=== PATIENT | male | born 1945 | race Caucasian/White ===

== ENCOUNTER 2024-04-13 19:55 | Inpatient (IN) | payer OTHER, MEDICARE ==
[~2024-04-13] VITALS: Ht 182.9 cm; Wt 81.8 kg
[2024-04-13] MEDS: HEPARIN DRIP INITAL BOLUS --- DO NOT GIVE/ORDER MC ONE (20:30)
[2024-04-13 20:52] LABS: ALANINE AMINOTRANSFERASE 28 U/L (12-78); ALBUMIN/GLOBULIN RATIO 1.1 (1.1-1.5); ALKALINE PHOSPHATASE 71 IU/L (46-116); ANION GAP 13 (8-16); ASPARTATE AMINO TRANSFERASE 67 U/L (10-37); BILIRUBIN,TOTAL 0.9 MG/DL (0.1-1.0); BLOOD UREA NITROGEN 51 MG/DL (7-18); BUN/CREATININE RATIO 20.6 (10.0-20.0); CALCIUM 8.7 MG/DL (8.5-10.1); CHLORIDE 102 MMOL/L (99-107); CREATININE 2.48 MG/DL (0.60-1.10); GLUCOSE 350 MG/DL (70-104); POTASSIUM 4.9 MMOL/L (3.5-5.1); SODIUM 137 MMOL/L (135-145); TOTAL CARBON DIOXIDE 21.8 MMOL/L (24-32); TOTAL PROTEIN 7.7 G/DL (6.4-8.2); eCRCL 28 ML/MIN; eGFR 25 ML/MIN
[2024-04-13 20:58] LABS: MAGNESIUM 2.7 MG/DL (1.5-2.4)
[2024-04-13 20:58] LABS: BASOPHILS % (AUTO) 0.1 % (0-1); EOSINOPHILS % (AUTO) 0 % (0-6); HEMATOCRIT 41.7 % (42.0-52.0); HEMOGLOBIN 13.8 g/dl (14.0-17.9); LYMPHOCYTES # (AUTO) 0.3 X10'3 (1.1-4.8); LYMPHOCYTES % (AUTO) 4.1 % (21-51); MEAN CORPUSCULAR HEMOGLOBIN 28.8 PG (27.0-31.0); MEAN CORPUSCULAR HGB CONC 33.2 g/dL (33.0-36.5); MEAN CORPUSCULAR VOLUME 86.8 FL (78-98); MEAN PLATELET VOLUME 7.7 FL (7.4-10.4); MONOCYTES # (AUTO) 0.4 X10'3 (0-0.9); MONOCYTES % (AUTO) 4.7 % (2-12); NEUTROPHILS # (AUTO) 7.4 X10'3 (1.8-7.7); NEUTROPHILS % (AUTO) 91.1 % (42-75); PLATELET COUNT 238 X10'3 (140-440); RED BLOOD COUNT 4.81 X10'6 (4.70-6.10); RED CELL DISTRIBUTION WIDTH 14.4 % (11.5-14.5); WHITE BLOOD COUNT 8.1 X10'3 (4.5-11.0)
[2024-04-13 21:00] LABS: PRO BRAIN NATRIURETIC PEPTIDE > 30000 PG/ML (0-450)
[2024-04-13 21:10] LABS: APTT 30 SECONDS (22-32); PROTHROMBIN TIME 10.7 SECONDS (9.0-12.0)
[2024-04-13] MEDS: heparin 10,000 units/1 ML INJ IV PRN (21:41)
[2024-04-13] MEDS: heparin 25,000 UNIT/250ml bag 250 ML IV PRN (21:44)
[2024-04-13] MEDS ORDERED: morphine 2 MG/ML inj. syringe IV PRN ×2 (21:50)
[2024-04-13] MEDS ORDERED: bisacodyl 10mg suppository rectal RC PRN (21:50)
[2024-04-13] MEDS ORDERED: dextrose 50%-water 50ml dispensing syringe IV PRN ×2 (21:50)
[2024-04-13] MEDS ORDERED: magnesium Cl slow-release 64mg tablet PO PRN (21:50)
[2024-04-13] MEDS ORDERED: acetaminophen 325mg tablet PO PRN (21:50)
[2024-04-13] MEDS ORDERED: mag hydrox/Alum hydrox/simeth 30ml oral suspension PO PRN (21:50)
[2024-04-13] MEDS ORDERED: DEXTROSE 15 GM of carb/4 tabs (each vial/BOTTLE has 4 tablets) PO PRN ×2 (21:50)
[2024-04-13] MEDS ORDERED: magnesium hydroxide 30ml (MOM) UD suspension PO PRN (21:50)
[2024-04-13] MEDS ORDERED: magnesium sulf-water 4G/100mL 100 ML IV PRN (21:50)
[2024-04-13] MEDS ORDERED: potassium Cl 20 mEq SR tablet PO PRN ×2 (21:50)
[2024-04-13] MEDS ORDERED: potassium Cl 40MEQ/1/2NS 520ml 520 ML IV PRN (21:50)
[2024-04-13] MEDS ORDERED: magnesium sulf-water 2g/50mL 50 ML IV PRN (21:50)
[2024-04-13] MEDS ORDERED: ondansetron/PF 4mg/2ml inj IV PRN (21:50)
[2024-04-13] MEDS ORDERED: HYDROmorphone inj. 0.5 MG/0.5 ML DISP.SYRIN IV PRN (21:50)
[2024-04-13] MEDS ORDERED: glucagon, human recombinant 1mg kit SUBCUT PRN (21:50)
[2024-04-13] MEDS: metoprolol tartrate 1mg/ml inj IV SCH (22:05)
[2024-04-13] MEDS: atorvastatin 20mg tablet PO SCH (22:40)
[2024-04-13 22:45] VITALS: PULSE 87; RESP 18; O2SAT 94
[2024-04-13] MEDS: ipratropium/albuterol 3ml nebule NEB SCH (22:45)
[2024-04-13 22:57] VITALS: PULSE 80; RESP 18
[2024-04-13 23:11] LABS: HEMOGLOBIN A1C 6.4 % (4.5-6.2)
[2024-04-13] MEDS: MESSAGE TO NURSING IV ONE (23:25)
[2024-04-13 23:47] LABS: BILIRUBIN,URINE NEGATIVE (Neg); CLARITY,URINE CLEAR (Clear); COLOR,URINE YELLOW (Yellow); GLUCOSE, URINE >=1000 mg/dl (Neg); KETONES,URINE TRACE mg/dl (Neg); LEUKOCYTE ESTERASE ,URINE NEGATIVE (Neg); NITRITES, URINE NEGATIVE (Neg); OCCULT BLOOD,URINE TRACE-INTACT (Neg); PH,URINE 5.5 (4.8-8.0); PROTEIN,URINE NEGATIVE (Neg); UROBILINOGEN,URINE 0.2 E.U/dL (0.2-1.0)
[2024-04-13 23:51] LABS: UA COLLECTION TYPE URINAL
[2024-04-13 23:54] LABS: BACTERIA,URINE 2+ /HPF (Neg); HYALINE CASTS 0-3 /LPF (NEGATIVE); MUCUS STRANDS FEW /LPF (Neg); RBC,URINE 0-2 /HPF (0-2); SQUAMOUS EPITHELIAL CELL,UR FEW /LPF (FEW); WBC,URINE 0-4 /HPF (0-4)
[2024-04-14] VITALS (8 sets, daily range): BP systolic 154; BP diastolic 71; PULSE 67–92; RESP 15–18; TEMP 97.2; O2SAT 95–100
[2024-04-14 04:18] LABS: BASOPHILS % (AUTO) 0.3 % (0-1); EOSINOPHILS % (AUTO) 0 % (0-6); HEMATOCRIT 40.6 % (42.0-52.0); HEMOGLOBIN 13.5 g/dl (14.0-17.9); LYMPHOCYTES # (AUTO) 0.6 X10'3 (1.1-4.8); LYMPHOCYTES % (AUTO) 4.4 % (21-51); MEAN CORPUSCULAR HEMOGLOBIN 28.6 PG (27.0-31.0); MEAN CORPUSCULAR HGB CONC 33.2 g/dL (33.0-36.5); MEAN PLATELET VOLUME 7.8 FL (7.4-10.4); MONOCYTES # (AUTO) 0.8 X10'3 (0-0.9); MONOCYTES % (AUTO) 5.6 % (2-12); NEUTROPHILS # (AUTO) 12.3 X10'3 (1.8-7.7); NEUTROPHILS % (AUTO) 89.7 % (42-75); PLATELET COUNT 235 X10'3 (140-440); RED BLOOD COUNT 4.72 X10'6 (4.70-6.10); RED CELL DISTRIBUTION WIDTH 14.7 % (11.5-14.5); WHITE BLOOD COUNT 13.7 X10'3 (4.5-11.0)
[2024-04-14 04:43] LABS: ALANINE AMINOTRANSFERASE 29 U/L (12-78); ALBUMIN 3.5 G/DL (3.4-5.0); ALBUMIN/GLOBULIN RATIO 1.1 (1.1-1.5); ALKALINE PHOSPHATASE 58 IU/L (46-116); ANION GAP 10 (8-16); ASPARTATE AMINO TRANSFERASE 90 U/L (10-37); BILIRUBIN,TOTAL 0.8 MG/DL (0.1-1.0); BLOOD UREA NITROGEN 53 MG/DL (7-18); BUN/CREATININE RATIO 22.5 (10.0-20.0); CALCIUM 8.5 MG/DL (8.5-10.1); CHLORIDE 104 MMOL/L (99-107); CHOL/HDL RATIO 4.3 (0.00-4.99); CHOLESTEROL 225 MG/DL (0-200); CREATININE 2.36 MG/DL (0.60-1.10); GLUCOSE 243 MG/DL (70-104); HDL CHOLESTEROL 52 MG/DL (35-60); LDL CHOLESTEROL 154 MG/DL (50-100); MAGNESIUM 2.7 MG/DL (1.5-2.4); SODIUM 138 MMOL/L (135-145); TOTAL CARBON DIOXIDE 24.5 MMOL/L (24-32); TOTAL PROTEIN 6.7 G/DL (6.4-8.2); TRIGLYCERIDES 70 MG/DL (20-135); eCRCL 30 ML/MIN; eGFR 27 ML/MIN
[2024-04-14] MEDS: MESSAGE TO NURSING IV ONE ×2 (04:45→23:55)
[2024-04-14 04:47] LABS: POTASSIUM 4.4 MMOL/L (3.5-5.1)
[2024-04-14] MEDS: docusate sod 100mg capsule PO SCH (07:07)
[2024-04-14] MEDS: K and/or MAG REPLACEMENT MC SCH (07:07)
[2024-04-14] MEDS: metoprolol succinate 25mg (24-HOUR) SR. Tablet PO SCH (08:44)
[2024-04-14] MEDS: INSULIN LISPRO 100 UNIT/ML INSULN.PEN MULTI-DOSE SQ SCH (08:47)
[2024-04-14] MEDS: furosemide 40mg/4ml inj IV ONE (12:35)
[2024-04-14] MEDS: insulin glargine (Lantus) pen - multi-dose SQ SCH (21:05)
[2024-04-15] VITALS (8 sets, daily range): BP systolic 143–154; BP diastolic 76–79; PULSE 60–84; RESP 16–20; TEMP 97.3–98.4; O2SAT 94–99
[2024-04-15 07:26] LABS: BASOPHILS # (AUTO) 0.1 X10'3 (0-0.2); BASOPHILS % (AUTO) 0.7 % (0-1); EOSINOPHILS # (AUTO) 0.1 X10'3 (0-0.9); EOSINOPHILS % (AUTO) 0.9 % (0-6); HEMATOCRIT 42.6 % (42.0-52.0); HEMOGLOBIN 14.1 g/dl (14.0-17.9); LYMPHOCYTES # (AUTO) 1.7 X10'3 (1.1-4.8); LYMPHOCYTES % (AUTO) 21.2 % (21-51); MEAN CORPUSCULAR HEMOGLOBIN 28.4 PG (27.0-31.0); MONOCYTES # (AUTO) 0.8 X10'3 (0-0.9); MONOCYTES % (AUTO) 9.7 % (2-12); NEUTROPHILS # (AUTO) 5.5 X10'3 (1.8-7.7); NEUTROPHILS % (AUTO) 67.5 % (42-75); PLATELET COUNT 210 X10'3 (140-440); RED BLOOD COUNT 4.95 X10'6 (4.70-6.10); RED CELL DISTRIBUTION WIDTH 14.7 % (11.5-14.5); WHITE BLOOD COUNT 8.1 X10'3 (4.5-11.0)
[2024-04-15 07:42] LABS: ALANINE AMINOTRANSFERASE 32 U/L (12-78); ALBUMIN 3.7 G/DL (3.4-5.0); ALKALINE PHOSPHATASE 60 IU/L (46-116); ANION GAP 13 (8-16); ASPARTATE AMINO TRANSFERASE 65 U/L (10-37); BILIRUBIN,TOTAL 0.9 MG/DL (0.1-1.0); BLOOD UREA NITROGEN 60 MG/DL (7-18); BUN/CREATININE RATIO 24.7 (10.0-20.0); CALCIUM 8.9 MG/DL (8.5-10.1); CHLORIDE 101 MMOL/L (99-107); CREATININE 2.43 MG/DL (0.60-1.10); GLUCOSE 143 MG/DL (70-104); MAGNESIUM 2.5 MG/DL (1.5-2.4); POTASSIUM 3.8 MMOL/L (3.5-5.1); SODIUM 141 MMOL/L (135-145); TOTAL CARBON DIOXIDE 26.8 MMOL/L (24-32); TOTAL PROTEIN 7.4 G/DL (6.4-8.2); eCRCL 27 ML/MIN; eGFR 26 ML/MIN
[2024-04-15] MEDS: MESSAGE TO NURSING IV ONE (09:33)
[2024-04-15] MEDS ORDERED: METO-395 PO ×2 (10:56→11:33)
[2024-04-15] MEDS ORDERED: ATOR20TA66 PO ×2 (10:56→11:33)
[2024-04-15] MEDS ORDERED: CLOP-32 PO ×2 (10:56→11:33)
[2024-04-15] MEDS ORDERED: ASPI-1265 PO ×2 (10:56→11:33)
[2024-04-15] MEDS ORDERED: ISOS30TA84 PO ×2 (11:17→11:33)
[2024-04-15] MEDS ORDERED: METF-1203 PO (20:49)
== END 2024-04-15 12:10 | disposition home or self-care (01) | DRG 280 ==
LOC: ER 19:55 → ED HOLD 21:57 → PCU 3S 04-14 22:30
PROVIDERS: ADMIT Surgery Surgical Critical Care; ATTEND Internal Medicine
DX: I21.4 Non-ST elevation (NSTEMI) myocardial infarction (principal); I50.33 Acute on chronic diastolic (congestive) heart failure; N18.4 Chronic kidney disease, stage 4 (severe); N40.0 Benign prostatic hyperplasia without lower urinary tract symptoms; E11.22 Type 2 diabetes mellitus with diabetic chronic kidney disease; Z66 Do not resuscitate; E11.51 Type 2 diabetes mellitus with diabetic peripheral angiopathy without gangrene; E03.9 Hypothyroidism, unspecified; Z88.5 Allergy status to narcotic agent; Z88.1 Allergy status to other antibiotic agents
CPT/HCPCS: 36415; 71045; 80053; 80061; 81001; 82948; 83036; 83735; 83880; 84484; 85025; 85610; 85730; 87081; 93005; 93306; 93922; 94640; 94760; 96374; 99285; G0378; J1644; J1815; J1940; J3490; J7030